=== PATIENT | female | born 1970 | race Caucasian/White ===

== ENCOUNTER 2017-01-14 11:49 | Inpatient (IN) | payer MEDICAID ==
[2017-01-14 16:59] LABS: BASOPHILS % (AUTO) 0.4 % (0.2-1.0); EOSINOPHILS # (AUTO) 0.1 x10^3/uL (0.0-0.2); EOSINOPHILS % (AUTO) 1.2 % (0.9-2.9); HEMATOCRIT 41.7 % (36.0-47.0); HEMOGLOBIN 14.4 g/dL (12.0-16.0); LYMPHOCYTES # (AUTO) 2.8 X10^3/uL (1.3-2.9); LYMPHOCYTES % (AUTO) 27.7 % (21.0-51.0); MEAN CORPUSCULAR HEMOGLOBIN 31.8 pg (27.0-34.0); MEAN CORPUSCULAR HGB CONC 34.6 g/dL (33.0-35.0); MEAN PLATELET VOLUME 7.6 fL (7.4-11.0); MONOCYTES # (AUTO) 0.8 x10^3/uL (0.3-0.8); MONOCYTES % (AUTO) 7.7 % (0.0-13.0); NEUTROPHILS # (AUTO) 6.4 x10^3/uL (2.2-4.8); PLATELET COUNT 243 X10^3/uL (150.0-450.0); RED BLOOD COUNT 4.54 X10^6/uL (3.5-5.4); RED CELL DISTRIBUTION WIDTH 14.1 % (11.6-16.5); WHITE BLOOD COUNT 10.2 X10^3/uL (3.6-10.0)
[2017-01-14 17:07] LABS: BLOOD UREA NITROGEN 12 mg/dL (7-18); CALCIUM 9.2 mg/dL (8.5-10.1); CARBON DIOXIDE 27.3 mmol/L (21-32); CHLORIDE 109 mmol/L (98-107); CREATININE 0.82 mg/dL (0.55-1.02); GLUCOSE 87 mg/dL (65-99); SODIUM 143 mmol/L (136-145); eGFR BLACK RACES > 60 (>60); eGFR NON BLACK RACES > 60 (>60)
--- NOTE | 2017-01-14 17:25 | RAD ---
History: Cough and wheezing Study: PA and lateral chest Comparison: None Findings: The lungs are well inflated and grossly clear. The heart is mildly enlarged. There is no p leural effusion. The aorta is unremarkable. No bony abnormality is demonstrated. Impression: Mild cardiomegaly, no definite acute disease. Reported By:
[2017-01-14 17:28] LABS: ABG ALLEN TEST POS; ABG BASE EXCESS 3.1 mmol/L (-2.0-2.0)
[2017-01-14] MEDS: DUONEB 0.5 MG/3 MG NEB SCH ×3 (17:47→20:45)
[2017-01-14 17:59] VITALS: BMI 33.5
[2017-01-14] MEDS ORDERED: NS 250 ML IV 250 ML IV ONE (18:42)
[2017-01-14] MEDS ORDERED: NORCO 5/325 MG TAB PO PRN (18:49)
[2017-01-14] MEDS: ROCEPHIN VIAL 1 GM 1 GM in NS 50 ML IV + SPIKE MINIBAG* 50 ML IV SCH (18:50)
[2017-01-14] MEDS: ZOFRAN INJ 4 MG VIAL IVP PRN (22:49)
[2017-01-14] MEDS: MORPHINE SULFATE INJ 2 MG IVP PRN (22:50)
[2017-01-14] MEDS: ZITHROMAX INJ 500 MG VIAL 500 MG in NS 250 ML IV 250 ML IV SCH (22:55)
[2017-01-15] MEDS: DUONEB 0.5 MG/3 MG NEB SCH ×6 (01:03→21:06)
[2017-01-15] MEDS: MORPHINE SULFATE INJ 2 MG IVP PRN ×2 (04:12→17:01)
[2017-01-15] MEDS: ZOFRAN INJ 4 MG VIAL IVP PRN ×3 (04:15→22:23)
[2017-01-15] MEDS ORDERED: ROBITUSSIN DM PO PRN (08:20)
[2017-01-15] MEDS ORDERED: TYLENOL #3 TAB (W/CODEINE) PO PRN (09:10)
[2017-01-15] MEDS ORDERED: ONDANSETRON HCL 8 MG PO PRN (09:10)
[2017-01-15] MEDS ORDERED: LOMOTIL PO PRN (09:10)
[2017-01-15] MEDS ORDERED: CYCLOBENZAPRINE HCL 5 MG PO PRN (09:10)
[2017-01-15] MEDS ORDERED: PATIENT'S HOME MEDICATION (Budesonide-Formoterol 2 PUFF) PO SCH (09:15)
[2017-01-15] MEDS ORDERED: POTASSIUM CHLORIDE 20 MEQ PO SCH (09:15)
--- NOTE | 2017-01-15 09:15 | DR.H&P ---
H&P - History & Physical for Day of: H&P Date: 01/14/17 - Chief Complaint Chief Complaint: SOB - Allergies Allergies/Adverse Reactions: Allergies Allergy/AdvReac Type Severity Reaction Status Date / Time No Known Drug Allergy Allergy Verified 01/14/17 17:59 - History of Present Illness History of Present Illness: The patient is a 46-year-old white female who presented to the first care clinic with complaints of increasing shortness of breath. Has dyspnea on exertion. Does have a history of COPD. Has audible wheezing. Patient has been on Levaquin since last week as well as continuing nebulizer treatments. States she has not had a treatment this morning. Albuterol Atrovent neb treatment was given in the office. O2 saturation was 98- 99% on room air. Patient denies having productive cough. Patient denies fever. Does complain of fatigue. Does state that she has difficulty walking across the room. Patient will be admitted for further evaluation and management. - Past Medical History Past Medical History: Asthma, COPD, Diabetes, Hypertension - Past Surgical History Surgical History: Hysterectomy - Family History Family Medical History: Cancer, Hypertension - Social History Does patient currently use any type of tobacco product: No Have you used tobacco products in the last 12 months: No Type of Tobacco Use: None Does any household member use tobacco: No Alcohol Use: None Drug Use: None - Medications Home Medications: Acetaminophen/Codeine Tab [TYLENOL w/CODEINE #3 (300 MG/30 MG) *] 1 tab PO Q8H PRN 01/14/17 [History Confirmed 01/14/17] Albuterol Sulfate [Proair Hfa] 2 puff INH QID PRN 01/14/17 [History Confirmed ] Aspirin EC [ASPIRIN EC 81 MG *] 81 mg PO DAILY 01/14/17 [History Confirmed 01/14] Atorvastatin Calcium [LIPITOR Tab 10 mg *] 10 mg PO HS 01/14/17 [History Confirmed 01/14/17] Budesonide-Formoterol [SYMBICORT INH 80/4.5 mcg (10.2 g) *] 2 puff PO BID [History Confirmed 01/14/17] Cyclobenzaprine HCl [Flexeril] 5 mg PO TID PRN 01/14/17 [History Confirmed 01/14] Diphenoxylate W/ Atropine [Diphenoxylate/Atropine 2.5-0.025 mg] 1 tab PO QID PRN 01/14/17 [History Confirmed 01/14/17] Estrogens, Conjugated [Premarin] 0.625 mg PO DAILY 01/14/17 [History Confirmed 01/14/17] Fluticasone-Salmeterol [Advair Diskus 250-50 Mcg/Dose 14-dose] 1 puff IN DAILY 01/14/17 [History Confirmed 01/14/17] Hydrocodone-Acet 5 mg/325 mg [[place] 5/325 mg Tab] 1 tab PO Q4H PRN 01/14/17 [ History Confirmed 01/14/17] Ipratropium/Albuterol Nebule [DUONEB 0.5 MG/3 MG NEBULE *] 1 nebule NEB QID 07/21 [History Confirmed 01/14/17] Lisinopril 5 mg PO DAILY 01/14/17 [History Confirmed 01/14/17] Ondansetron HCl [Zofran] 8 mg PO Q6H PRN 01/14/17 [History Confirmed 01/14/17] Potassium Chloride [K-Tab] 20 meq PO DAILY 01/14/17 [History Confirmed 01/14/17] Promethazine HCl [PHENERGAN TAB 25 MG *] 25 mg PO Q8H PRN 01/14/17 [History Confirmed 01/14/17] - Review of Systems Constitutional: Weakness, Malaise Eyes: No Symptoms Reported ENT: No Symptoms Reported Respiratory: Cough, Shortness of Breath, SOB with Excertion, Wheezing Cardiovascular: No Symptoms Reported Gastrointestinal: No Symptoms Reported Genitourinary: No Symptoms Reported Musculoskeletal: No Symptoms Reported Skin: No Symptoms Reported Neurological: No Symptoms Reported - Physical Exam Vital Signs: Temperature 97.5 F Pulse Rate [Right Brachial] 83 Pulse Rate [Left Brachial] 118 Pulse Rate 98 Respiratory Rate 20 Blood Pressure [Right Arm] 111/80 O2 Sat by Pulse Oximetry 94 Oriented: Normal Eyes: Normal Ear: Normal Nose: Normal Throat: Normal Respiratory: Diminished Throughout, Wheezes Throughout Cardiovascular: Normal : Normal Auscultation: Bowel Sounds: Normal Palpation: Normal Tenderness: Normal Skin: Normal Musculoskeletal: Normal Psychiatric: Normal Mood Description: Calm Affect: Normal Speech Pattern: Clear - Assessment/Plan (1) Acute exacerbation of COPD with asthma Status: Acute Plan: IV Rocephin, Zithromax and Solu-moderol. CXR. Nebulizer treatments. (2) Acute bronchitis Qualifiers: Bronchitis organism: B Status: Acute Plan: Rocephin and Zithromax. Nebulizer treatments. Chest x-ray. (3) Diabetes Qualifiers: Diabetes mellitus type: type 2 Diabetes mellitus complication status: D Diabetes mellitus complication detail: D Diabetic retinopathy severity: D Proliferative retinopathy type: P Diabetes mellitus macular edema: D Diabetes mellitus exterminator termite insulin use: D Laterality: L Chronic kidney disease stage: C Status: Acute Plan: blood sugar checks. Sliding scale coverage.
[2017-01-15] MEDS: ROCEPHIN VIAL 1 GM 1 GM in NS 50 ML IV + SPIKE MINIBAG* 50 ML IV SCH (09:19)
[2017-01-15] MEDS: ROBITUSSIN DM PO SCH ×4 (09:21→21:33)
[2017-01-15] MEDS ORDERED: ZOFRAN TAB 4 MG PO PRN (09:25)
[2017-01-15] MEDS: ASPIRIN EC 81 MG PO SCH (10:07)
[2017-01-15] MEDS: SOLU-Medrol 40 MG VIAL IVP SCH ×2 (10:07→16:54)
[2017-01-15] MEDS: ZITHROMAX INJ 500 MG VIAL 500 MG in NS 250 ML IV 250 ML IV SCH (10:08)
[2017-01-15] MEDS: K-DUR TAB 20 MEQ PO SCH (10:08)
[2017-01-15] MEDS: FLEXERIL TAB 10 MG PO PRN (12:13)
[2017-01-15] MEDS: PULMICORT NEB TX 0.5 MG NEB SCH ×2 (16:38→21:06)
--- NOTE | 2017-01-15 17:31 | PCM.PROG ---
Progress Note - Progress Note for Day of Date: 01/15/17 - Subjective Subjective: COUGHING BAD, MAKES HER CHOKE. 46WF ADMITTED FOR COPD EXACERBATION ONE DAY AGO. PLAN TO CONTINUE IV ATBX AND RESP THERAPY - Past Medical Family Social History Past Med/Fam/Surg Hx: No changes since H&P Allergies: Allergies No Known Drug Allergy Allergy (Verified 01/14/17 17:59) - Review of Systems ROS: No change since H&P - Vital Signs and I&O's Vital Signs: Temperature 97.6 F Pulse Rate [Right Brachial] 93 Pulse Rate [Left Brachial] 106 Pulse Rate 105 Respiratory Rate 20 Blood Pressure [Left Arm] 151/65 Blood Pressure [Right Arm] 128/89 O2 Sat by Pulse Oximetry 96 Intake and Output: Intake & Output 01/13/17 01/14/17 01/15/17 01/16/17 11:59 11:59 11:59 11:59 Intake Total 1230 1620 Balance 1230 1620 - Physical Exam Oriented: Normal Eyes: Normal Ear: Normal Nose: Normal Throat: Normal Respiratory: Wheezes, Rhonchi Cardiovascular: Normal : Normal Auscultation: Bowel Sounds: Normal Tenderness: Normal Skin: Normal Musculoskeletal: Normal Psychiatric: Normal Mood Description: Calm Affect: Normal Speech Pattern: Clear - Laboratory and Diagnostics Result Diagrams: 01/14/17 16:45 01/14/17 16:45 Labs: 01/14/17 16:52 Urine,Clean Catch Urine Culture - Final Laboratory WBC 10.2 X10^3/uL (3.6-10.0) H 01/14/17 16:45 RBC 4.54 X10^6/uL (3.5-5.4) 01/14/17 16:45 Hgb 14.4 g/dL (12.0-16.0) 01/14/17 16:45 Hct 41.7 % (36.0-47.0) 01/14/17 16:45 MCV 92.0 fL (80.0-100.0) 01/14/17 16:45 MCH 31.8 pg (27.0-34.0) 01/14/17 16:45 MCHC 34.6 g/dL (33.0-35.0) 01/14/17 16:45 RDW 14.1 % (11.6-16.5) 01/14/17 16:45 Plt Count 243 X10^3/uL (150.0-450.0) 01/14/17 16:45 MPV 7.6 fL (7.4-11.0) 01/14/17 16:45 Neut % 63.0 % (42.0-75.0) 01/14/17 16:45 Lymph % 27.7 % (21.0-51.0) 01/14/17 16:45 [place] % 7.7 % (0.0-13.0) 01/14/17 16:45 Eos % 1.2 % (0.9-2.9) 01/14/17 16:45 Baso % 0.4 % (0.2-1.0) 01/14/17 16:45 Neut # 6.4 x10^3/uL (2.2-4.8) H 01/14/17 16:45 Lymph # 2.8 X10^3/uL (1.3-2.9) 01/14/17 16:45 [place] # 0.8 x10^3/uL (0.3-0.8) 01/14/17 16:45 Eos # 0.1 x10^3/uL (0.0-0.2) 01/14/17 16:45 Baso # 0.0 X10^3/uL (0.0-0.1) 01/14/17 16:45 Absolute Nucleated RBC 0.0 /100WBC 01/14/17 16:45 Sample Site Rr 01/14/17 17:23 ABG pH 7.460 (7.35-7.45) H 01/14/17 17:23 ABG pCO2 38.0 mmHg (35.0-45.0) 01/14/17 17:23 ABG pO2 80.0 mmHg (80.0-100.0) 01/14/17 17:23 ABG HCO3 27.0 mmol/L (22-26) H 01/14/17 17:23 ABG O2 Saturation 96.0 % (90-100) 01/14/17 17:23 ABG Base Excess 3.1 mmol/L (-2.0-2.0) H 01/14/17 17:23 Garry Test Pos 06/12/17 17:23 A-a Gradient 22.0 mmHg 01/14/17 17:23 FiO2 21.000 01/14/17 17:23 Blood Gas Comments Pt marleni well. cdn 01/14/17 17:23 Sodium 143 mmol/L (136-145) 01/14/17 16:45 Corrected Sodium TNP 01/14/17 16:45 Potassium 3.6 mmol/L (3.5-5.1) 01/14/17 16:45 Chloride 109 mmol/L (98-107) H 01/14/17 16:45 Carbon Dioxide 27.3 mmol/L (21-32) 01/14/17 16:45 BUN 12 mg/dL (7-18) 01/14/17 16:45 Creatinine 0.82 mg/dL (0.55-1.02) 01/14/17 16:45 Est GFR (MDRD) Af Amer > 60 (>60) 01/14/17 16:45 Est GFR (MDRD) Non-Af > 60 (>60) 01/14/17 16:45 Glucose 87 mg/dL (65-99) 01/14/17 16:45 Calcium 9.2 mg/dL (8.5-10.1) 01/14/17 16:45 - Plan (1) Acute bronchitis Status: Acute Qualifiers: Bronchitis organism: B Plan: Rocephin and Zithromax. Nebulizer treatments. Chest x-ray. (2) Acute exacerbation of COPD with asthma Status: Acute Plan: IV Rocephin, Zithromax and Solu-moderol. CXR. Nebulizer treatments. (3) Diabetes Status: Acute Qualifiers: Diabetes mellitus type: type 2 Diabetes mellitus complication status: D Diabetes mellitus complication detail: D Diabetic retinopathy severity: D Proliferative retinopathy type: P Diabetes mellitus macular edema: D Diabetes mellitus custodial insulin use: D Laterality: L Chronic kidney disease stage: C Plan: blood sugar checks. Sliding scale coverage.
[2017-01-15] MEDS: LIPITOR TAB 10 MG PO SCH (21:33)
[2017-01-16] MEDS: SOLU-Medrol 40 MG VIAL IVP SCH ×2 (00:27→08:59)
[2017-01-16] MEDS: DUONEB 0.5 MG/3 MG NEB SCH ×6 (01:19→20:49)
[2017-01-16] MEDS: MORPHINE SULFATE INJ 2 MG IVP PRN ×4 (03:59→21:08)
[2017-01-16] MEDS: ZOFRAN INJ 4 MG VIAL IVP PRN ×2 (04:01→16:16)
--- NOTE | 2017-01-16 06:04 | RAD ---
HISTORY: Cough, wheezing Study: Chest one view Comparison: January 14, 2017 Findings: The trachea is midline. The cardiac silhouette is enlarged. No congestive heart failure is noted.. The lungs are clear without focal infiltrate or effusion. The bony thorax is unremarkable. IMPRESSION: 1. Mild cardiomegaly without congestive heart failure 2. Lungs clear Reported By:
[2017-01-16 06:44] LABS: ALANINE AMINOTRANSFERASE 19 Units/L (12-78); ALKALINE PHOSPHATASE 98 Units/L (46-116); ASPARTATE AMINO TRANSFERASE 9 Units/L (15-37); BLOOD UREA NITROGEN 14 mg/dL (7-18); CALCIUM 9.3 mg/dL (8.5-10.1); CARBON DIOXIDE 26.2 mmol/L (21-32); CHLORIDE 109 mmol/L (98-107); COR CA(FOR HYPOALB) 10.1 mg/dL (8.5-10.1); COR NA(FOR HYPERGLY) 143 mmol/L (136-145); CREATININE 0.67 mg/dL (0.55-1.02); GLUCOSE 158 mg/dL (65-99); SODIUM 142 mmol/L (136-145); TOTAL PROTEIN 6.4 g/dL (6.4-8.2); eGFR BLACK RACES > 60 (>60); eGFR NON BLACK RACES > 60 (>60)
[2017-01-16 06:56] LABS: BASOPHILS % (AUTO) 0.1 % (0.2-1.0); HEMATOCRIT 39.1 % (36.0-47.0); HEMOGLOBIN 13.3 g/dL (12.0-16.0); LYMPHOCYTES # (AUTO) 0.8 X10^3/uL (1.3-2.9); LYMPHOCYTES % (AUTO) 5.5 % (21.0-51.0); MEAN CORPUSCULAR HEMOGLOBIN 31.6 pg (27.0-34.0); MEAN CORPUSCULAR HGB CONC 33.9 g/dL (33.0-35.0); MEAN PLATELET VOLUME 7.7 fL (7.4-11.0); MONOCYTES # (AUTO) 0.2 x10^3/uL (0.3-0.8); MONOCYTES % (AUTO) 1.4 % (0.0-13.0); NEUTROPHILS # (AUTO) 13.8 x10^3/uL (2.2-4.8); PLATELET COUNT 236 X10^3/uL (150.0-450.0); RED CELL DISTRIBUTION WIDTH 13.8 % (11.6-16.5); WHITE BLOOD COUNT 14.9 X10^3/uL (3.6-10.0)
[2017-01-16 07:35] LABS: BAND NEUTROPHILS % 3 % (0-10)
[2017-01-16 07:36] LABS: PLATELET MORPHOLOGY COMMENT NORMAL (NORMAL)
[2017-01-16] MEDS: ROCEPHIN VIAL 1 GM 1 GM in NS 50 ML IV + SPIKE MINIBAG* 50 ML IV SCH (08:58)
[2017-01-16] MEDS: PREMARIN PO SCH (09:00)
[2017-01-16] MEDS: ZESTRIL TAB 5 MG PO SCH (09:00)
[2017-01-16] MEDS: ASPIRIN EC 81 MG PO SCH (09:00)
[2017-01-16] MEDS: K-DUR TAB 20 MEQ PO SCH (09:00)
[2017-01-16] MEDS: ROBITUSSIN DM PO SCH ×4 (09:00→21:07)
[2017-01-16] MEDS: PULMICORT NEB TX 0.5 MG NEB SCH ×2 (09:15→20:49)
[2017-01-16] MEDS: ZITHROMAX INJ 500 MG VIAL 500 MG in NS 250 ML IV 250 ML IV SCH (09:59)
[2017-01-16] MEDS ORDERED: TORADOL 60 MG VIAL IM ONE (10:58)
[2017-01-16] MEDS: LIPITOR TAB 10 MG PO SCH (21:07)
[2017-01-16] MEDS: TUSSIONEX PENNKINETIC SUSP PO PRN (21:09)
[2017-01-16] MEDS: PHENERGAN TAB 25 MG PO PRN (21:42)
[2017-01-17] MEDS: DUONEB 0.5 MG/3 MG NEB SCH ×6 (01:07→20:45)
[2017-01-17] MEDS: MORPHINE SULFATE INJ 2 MG IVP PRN ×2 (02:32→07:25)
[2017-01-17 06:31] LABS: ALANINE AMINOTRANSFERASE 15 Units/L (12-78); ALBUMIN 2.9 g/dL (3.4-5.0); ALKALINE PHOSPHATASE 87 Units/L (46-116); ASPARTATE AMINO TRANSFERASE 9 Units/L (15-37); BLOOD UREA NITROGEN 16 mg/dL (7-18); CALCIUM 9.2 mg/dL (8.5-10.1); CARBON DIOXIDE 27.7 mmol/L (21-32); CHLORIDE 108 mmol/L (98-107); COR CA(FOR HYPOALB) 10.1 mg/dL (8.5-10.1); COR NA(FOR HYPERGLY) 146 mmol/L (136-145); CREATININE 0.63 mg/dL (0.55-1.02); GLUCOSE 126 mg/dL (65-99); SODIUM 145 mmol/L (136-145); TOTAL PROTEIN 5.9 g/dL (6.4-8.2); eGFR BLACK RACES > 60 (>60); eGFR NON BLACK RACES > 60 (>60)
[2017-01-17 06:35] LABS: BASOPHILS % (AUTO) 0.2 % (0.2-1.0); HEMOGLOBIN 12.7 g/dL (12.0-16.0); LYMPHOCYTES # (AUTO) 1.8 X10^3/uL (1.3-2.9); LYMPHOCYTES % (AUTO) 9.1 % (21.0-51.0); MEAN CORPUSCULAR HEMOGLOBIN 31.5 pg (27.0-34.0); MEAN CORPUSCULAR HGB CONC 33.5 g/dL (33.0-35.0); MEAN CORPUSCULAR VOLUME 93.8 fL (80.0-100.0); MEAN PLATELET VOLUME 7.8 fL (7.4-11.0); MONOCYTES # (AUTO) 1.1 x10^3/uL (0.3-0.8); MONOCYTES % (AUTO) 5.2 % (0.0-13.0); NEUTROPHILS # (AUTO) 17.3 x10^3/uL (2.2-4.8); NEUTROPHILS % (AUTO) 85.5 % (42.0-75.0); PLATELET COUNT 243 X10^3/uL (150.0-450.0); RED BLOOD COUNT 4.05 X10^6/uL (3.5-5.4); RED CELL DISTRIBUTION WIDTH 14.1 % (11.6-16.5)
[2017-01-17 06:37] LABS: WHITE BLOOD COUNT 20.2 X10^3/uL (3.6-10.0)
[2017-01-17] MEDS: PHENERGAN TAB 25 MG PO PRN (07:25)
[2017-01-17] MEDS: PULMICORT NEB TX 0.5 MG NEB SCH ×2 (08:47→20:45)
[2017-01-17] MEDS: ASPIRIN EC 81 MG PO SCH (09:16)
[2017-01-17] MEDS: K-DUR TAB 20 MEQ PO SCH (09:16)
[2017-01-17] MEDS: ROCEPHIN VIAL 1 GM 1 GM in NS 50 ML IV + SPIKE MINIBAG* 50 ML IV SCH (09:16)
[2017-01-17] MEDS: ZITHROMAX INJ 500 MG VIAL 500 MG in NS 250 ML IV 250 ML IV SCH (09:16)
[2017-01-17] MEDS: PREMARIN PO SCH (09:17)
[2017-01-17] MEDS: ZESTRIL TAB 5 MG PO SCH (09:17)
[2017-01-17] MEDS: ROBITUSSIN DM PO SCH ×4 (09:17→22:27)
[2017-01-17] MEDS: TUSSIONEX PENNKINETIC SUSP PO PRN (09:19)
[2017-01-17] MEDS ORDERED: NS 500 ML IV 500 ML IV ONE (09:22)
[2017-01-17] MEDS: NS 500 ML IV 500 ML IV SCH (10:05)
[2017-01-17] MEDS: NORCO 5/325 MG TAB PO PRN ×2 (14:17→22:28)
[2017-01-17] MEDS ORDERED: COLACE CAP 100 MG PO PRN (14:20)
[2017-01-17] MEDS ORDERED: MILK OF MAGNESIA PO PRN (14:20)
[2017-01-17] MEDS: BROVANA IN SCH (20:45)
[2017-01-17] MEDS: LIPITOR TAB 10 MG PO SCH (22:27)
[2017-01-17] MEDS: FLEXERIL TAB 10 MG PO PRN (22:27)
[2017-01-18] MEDS: DUONEB 0.5 MG/3 MG NEB SCH ×5 (00:43→16:32)
[2017-01-18] MEDS: NORCO 5/325 MG TAB PO PRN ×3 (03:45→14:04)
[2017-01-18 05:09] LABS: BASOPHILS % (AUTO) 0.2 % (0.2-1.0); EOSINOPHILS % (AUTO) 0.2 % (0.9-2.9); HEMATOCRIT 37.2 % (36.0-47.0); HEMOGLOBIN 12.6 g/dL (12.0-16.0); LYMPHOCYTES # (AUTO) 3.3 X10^3/uL (1.3-2.9); LYMPHOCYTES % (AUTO) 31.1 % (21.0-51.0); MEAN CORPUSCULAR HEMOGLOBIN 31.6 pg (27.0-34.0); MEAN CORPUSCULAR HGB CONC 33.8 g/dL (33.0-35.0); MEAN CORPUSCULAR VOLUME 93.6 fL (80.0-100.0); MEAN PLATELET VOLUME 7.7 fL (7.4-11.0); MONOCYTES # (AUTO) 0.8 x10^3/uL (0.3-0.8); MONOCYTES % (AUTO) 7.4 % (0.0-13.0); NEUTROPHILS # (AUTO) 6.5 x10^3/uL (2.2-4.8); NEUTROPHILS % (AUTO) 61.1 % (42.0-75.0); PLATELET COUNT 218 X10^3/uL (150.0-450.0); RED BLOOD COUNT 3.98 X10^6/uL (3.5-5.4); RED CELL DISTRIBUTION WIDTH 14.1 % (11.6-16.5); WHITE BLOOD COUNT 10.6 X10^3/uL (3.6-10.0)
[2017-01-18 05:20] LABS: ALANINE AMINOTRANSFERASE 29 Units/L (12-78); ALBUMIN 2.9 g/dL (3.4-5.0); ALKALINE PHOSPHATASE 90 Units/L (46-116); ASPARTATE AMINO TRANSFERASE 20 Units/L (15-37); BLOOD UREA NITROGEN 18 mg/dL (7-18); CALCIUM 8.9 mg/dL (8.5-10.1); CARBON DIOXIDE 32.2 mmol/L (21-32); CHLORIDE 106 mmol/L (98-107); COR CA(FOR HYPOALB) 9.8 mg/dL (8.5-10.1); CREATININE 0.76 mg/dL (0.55-1.02); GLUCOSE 97 mg/dL (65-99); SODIUM 144 mmol/L (136-145); TOTAL PROTEIN 5.7 g/dL (6.4-8.2); eGFR BLACK RACES > 60 (>60); eGFR NON BLACK RACES > 60 (>60)
--- NOTE | 2017-01-18 06:31 | RAD ---
HISTORY: Asthma, shortness of breath Study: Chest two views Comparison: January 16, 2017 Findings: The heart is minimally enlarged. No congestive heart failure is noted. No acute alveolar infiltrates or pleural effusions are identified. The bony thorax is unremarkable. IMPRESSION: Minimal cardiomegaly without congestive heart failure Lungs clear Reported By:
[2017-01-18] MEDS: BROVANA IN SCH (08:28)
[2017-01-18] MEDS: PULMICORT NEB TX 0.5 MG NEB SCH (08:28)
[2017-01-18] MEDS: PREMARIN PO SCH (09:39)
[2017-01-18] MEDS: ASPIRIN EC 81 MG PO SCH (09:39)
[2017-01-18] MEDS: ROBITUSSIN DM PO SCH ×3 (09:39→16:51)
[2017-01-18] MEDS: K-DUR TAB 20 MEQ PO SCH (09:39)
[2017-01-18] MEDS: ROCEPHIN VIAL 1 GM 1 GM in NS 50 ML IV + SPIKE MINIBAG* 50 ML IV SCH (09:39)
[2017-01-18] MEDS: NS 500 ML IV 500 ML IV SCH (09:39)
[2017-01-18] MEDS: ZITHROMAX INJ 500 MG VIAL 500 MG in NS 250 ML IV 250 ML IV SCH (09:39)
[2017-01-18] MEDS: ZESTRIL TAB 5 MG PO SCH (09:39)
[2017-01-18] MEDS ORDERED: D5 LR 1000 ML 1,000 ML IV ONE (15:34)
[2017-01-18] MEDS ORDERED: DIPRIVAN VIAL 20 ML ONE (15:57)
[2017-01-18 17:44] VITALS: BP 132/78
[2017-01-18] MEDS: TUSSIONEX PENNKINETIC SUSP PO PRN (18:47)
--- NOTE | 2017-02-04 10:29 | PCM.DCPLAN ---
Discharge Summary - Admission Date Date of Admission: 01/14/17 - Discharge Date Discharge Date: 01/17/17 - Admission Diagnoses (1) Dysphagia Status: Acute (2) Acute bronchitis Status: Acute (3) Acute exacerbation of COPD with asthma Status: Acute (4) Diabetes Status: Acute - Discharge Diagnoses Discharge Diagnosis: SAME ADMISSION DIAGNOSIS - Discharge Medications Discharge Medications: Acetaminophen/Codeine Tab [TYLENOL w/CODEINE #3 (300 MG/30 MG) *] 1 tab PO Q8H PRN 01/14/17 [History] Albuterol Sulfate [Proair Hfa] 2 puff INH QID PRN 01/14/17 [History] Aspirin EC [ASPIRIN EC 81 MG *] 81 mg PO DAILY 01/14/17 [History] Atorvastatin Calcium [LIPITOR Tab 10 mg *] 10 mg PO HS 01/14/17 [History] Budesonide-Formoterol [SYMBICORT INH 80/4.5 mcg (10.2 g) *] 2 puff PO BID [History] Cyclobenzaprine HCl [Flexeril] 5 mg PO TID PRN 01/14/17 [History] Diphenoxylate HCl/Atropine [Diphenoxylate-Atrop 2.5-0.025] 1 tab PO QID PRN 07/21 [History] Estrogens, Conjugated [PREMARIN TAB 0.625 MG *] 0.625 mg PO DAILY 01/14/17 [ History] Fluticasone/Salmeterol [Advair Diskus 250-50 Mcg/Dose 14-dose] 1 puff IN DAILY 01/14/17 [History] Hydrocodone-Acet 5 mg/325 mg [[place] 5 MG/325 MG *] 1 tab PO Q4H PRN 01/14/17 [ History] Ipratropium/Albuterol Nebule [DUONEB 0.5 MG/3 MG NEBULE *] 1 nebule NEB QID 07/21 [History] Lisinopril 5 mg PO DAILY 01/14/17 [History] Ondansetron HCl [Zofran] 8 mg PO Q6H PRN 01/14/17 [History] Potassium Chloride [K-Tab ER] 20 meq PO DAILY 01/14/17 [History] Promethazine HCl [PHENERGAN TAB 25 MG *] 25 mg PO Q8H PRN 01/14/17 [History] Levofloxacin [Levaquin Tab 750 mg] 750 mg PO Q24H #7 tab 01/18/17 [Rx] - Hospital Course Vital Signs: Temperature 97.7 F Pulse Rate [Right Brachial] 108 Pulse Rate [Left Brachial] 91 Pulse Rate 87 Respiratory Rate 20 Blood Pressure [Left Arm] 113/61 Blood Pressure [Right Arm] 132/78 O2 Sat by Pulse Oximetry 98 Latest Lab Results: Laboratory Last Values WBC 10.6 X10^3/uL (3.6-10.0) H 01/18/17 03:40 RBC 3.98 X10^6/uL (3.5-5.4) 01/18/17 03:40 Hgb 12.6 g/dL (12.0-16.0) 01/18/17 03:40 Hct 37.2 % (36.0-47.0) 01/18/17 03:40 MCV 93.6 fL (80.0-100.0) 01/18/17 03:40 MCH 31.6 pg (27.0-34.0) 01/18/17 03:40 MCHC 33.8 g/dL (33.0-35.0) 01/18/17 03:40 RDW 14.1 % (11.6-16.5) 01/18/17 03:40 Plt Count 218 X10^3/uL (150.0-450.0) 01/18/17 03:40 Plt Count Comment Adequate (ADEQUATE) 01/16/17 04:45 MPV 7.7 fL (7.4-11.0) 01/18/17 03:40 Neut % 61.1 % (42.0-75.0) 01/18/17 03:40 Lymph % 31.1 % (21.0-51.0) 01/18/17 03:40 Walker % 7.4 % (0.0-13.0) 01/18/17 03:40 Eos % 0.2 % (0.9-2.9) L 01/18/17 03:40 Baso % 0.2 % (0.2-1.0) 01/18/17 03:40 Neut # 6.5 x10^3/uL (2.2-4.8) H 01/18/17 03:40 Lymph # 3.3 X10^3/uL (1.3-2.9) H 01/18/17 03:40 Walker # 0.8 x10^3/uL (0.3-0.8) 01/18/17 03:40 Eos # 0.0 x10^3/uL (0.0-0.2) 01/18/17 03:40 Baso # 0.0 X10^3/uL (0.0-0.1) 01/18/17 03:40 Absolute Nucleated RBC 0.0 /100WBC 01/18/17 03:40 Total Counted 100 01/16/17 04:45 Neutrophils % (Manual) 90 % (39-76) H 01/16/17 04:45 Band Neutrophils % 3 % (0-10) 01/16/17 04:45 Lymphocytes % (Manual) 6 % (13-43) L 01/16/17 04:45 Monocytes % (Manual) 1 % (4-9) L 01/16/17 04:45 Plt Morphology Comment Normal (NORMAL) 01/16/17 04:45 RBC Morphology Normal (NORMAL) 01/16/17 04:45 Sample Site Rr 01/14/17 17:23 ABG pH 7.460 (7.35-7.45) H 01/14/17 17:23 ABG pCO2 38.0 mmHg (35.0-45.0) 01/14/17 17:23 ABG pO2 80.0 mmHg (80.0-100.0) 01/14/17 17: ABG HCO3 27.0 mmol/L (22-26) H 01/14/17 17:23 ABG O2 Saturation 96.0 % (90-100) 01/14/17 17:23 ABG Base Excess 3.1 mmol/L (-2.0-2.0) H 01/14/17 17:23 Garry Test Pos 01/14/17 17:23 A-a Gradient 22.0 mmHg 01/14/17 17:23 FiO2 21.000 01/14/17 17:23 Blood Gas Comments Pt marleni well. cdn 01/14/17 17:23 Sodium 144 mmol/L (136-145) 01/18/17 03:40 Corrected Sodium TNP 01/18/17 03:40 Potassium 4.5 mmol/L (3.5-5.1) 01/18/17 03:40 Chloride 106 mmol/L (98-107) 01/18/17 03:40 Carbon Dioxide 32.2 mmol/L (21-32) H 01/18/17 03:40 BUN 18 mg/dL (7-18) 01/18/17 03:40 Creatinine 0.76 mg/dL (0.55-1.02) 01/18/17 03:40 Est GFR (MDRD) Af Amer > 60 (>60) 01/18/17 03:40 Est GFR (MDRD) Non-Af > 60 (>60) 01/18/17 03:40 Glucose 97 mg/dL (65-99) 01/18/17 03:40 Calcium 8.9 mg/dL (8.5-10.1) 01/18/17 03:40 Corrected Calcium 9.8 mg/dL (8.5-10.1) 01/18/17 03:40 Total Bilirubin 0.20 mg/dL (0.2-1.0) 01/18/17 03:40 AST 20 Units/L (15-37) 01/18/17 03:40 ALT 29 Units/L (12-78) 01/18/17 03:40 Alkaline Phosphatase 90 Units/L (46-116) 01/18/17 03:40 Total Protein 5.7 g/dL (6.4-8.2) L 01/18/17 03:40 Albumin 2.9 g/dL (3.4-5.0) L 01/18/17 03:40 Globulin 2.8 g/dL (2.5-4.5) 01/18/17 03:40 Albumin/Globulin Ratio 1.0 Ratio (1.1-2.1) L 01/18/17 03:40 Tissue Pathology To follow 01/18/17 16:13 Hospital Course: The patient is a 46-year-old white female who presented to the first care clinic with complaints of increasing shortness of breath. Has dyspnea on exertion. Does have a history of COPD. Has audible wheezing. Patient has been on Levaquin since last week as well as continuing nebulizer treatments. States she has not had a treatment this morning. Albuterol Atrovent neb treatment was given in the office. O2 saturation was 98-99% on room air. Patient denies having productive cough. Patient denies fever. Does complain of fatigue. Does state that she has difficulty walking across the room. Patient was admitted for further evaluation and management. The patient did receive IV steroids, antibiotics and nebulizer treatments. Patient did have improvement in dyspnea. Subsequently patient underwent an EGD. Patient's symptoms again improved the patient was discharged home and followed up in outpatient setting. - Discharge Plan Disposition: 01 HOME, SELF-CARE Condition: Stable Prescriptions: Levofloxacin [Levaquin Tab 750 mg] 750 mg PO Q24H #7 tab - Follow ups/Referrals Follow ups/Referrals: JEREMY LINDER [Primary Care Provider] - - Instructions Additional Instructions: PATIENT HAD EGD THIS PM.
== END 2017-01-18 18:50 | disposition home or self-care (01) | DRG 202 ==
LOC: MED/SURG 11:49 → UNDOADMIN 11:49 → MED/SURG 15:15
PROVIDERS: ADMIT Internal Medicine; ATTEND Internal Medicine
PROC: 0DB68ZX Excision of Stomach, Via Natural or Artificial Opening Endoscopic, Diagnostic (ICD-10-PCS; principal; 2017-01-18 18:00)
DX: J20.8 Acute bronchitis due to other specified organisms (principal); J44.1 Chronic obstructive pulmonary disease with (acute) exacerbation; J44.0 Chronic obstructive pulmonary disease with (acute) lower respiratory infection; R06.02 Shortness of breath; R06.09 Other forms of dyspnea; R53.83 Other fatigue; E11.9 Type 2 diabetes mellitus without complications; I10 Essential (primary) hypertension; R11.2 Nausea with vomiting, unspecified; R10.13 Epigastric pain; K20.8 Other esophagitis; K44.9 Diaphragmatic hernia without obstruction or gangrene; K29.60 Other gastritis without bleeding
CPT/HCPCS: 36415; 36600; 71010; 71020; 80048; 80053; 82803; 85025; 87040; 87086; 93005; 93010; 94640; 94760; A4216; A4222; Q0169; A4217; J0456; J0696; J2270; J2405; J2920; J3490; J7120; J7620; J7626

== ENCOUNTER 2017-12-09 16:02 | Observation (INO) | payer MEDICAID ==
[2017-12-09 16:06] VITALS: BMI 36.3
[2017-12-09] MEDS ORDERED: MORPHINE SULFATE INJ 4 MG ONE (16:27)
[2017-12-09] MEDS ORDERED: MORPHINE SULFATE INJ 4 MG IVP ONE (16:30)
[2017-12-09 16:34] LABS: BASOPHILS # (AUTO) 0.1 X10^3/uL (0.0-0.1); EOSINOPHILS # (AUTO) 0.2 x10^3/uL (0.0-0.2); HEMOGLOBIN 14.2 g/dL (12.0-16.0); LYMPHOCYTES # (AUTO) 2.4 X10^3/uL (1.3-2.9); LYMPHOCYTES % (AUTO) 30.5 % (21.0-51.0); MEAN CORPUSCULAR HEMOGLOBIN 31.8 pg (27.0-34.0); MEAN CORPUSCULAR HGB CONC 34.7 g/dL (33.0-35.0); MEAN CORPUSCULAR VOLUME 91.4 fL (80.0-100.0); MEAN PLATELET VOLUME 7.6 fL (7.4-11.0); MONOCYTES # (AUTO) 0.7 x10^3/uL (0.3-0.8); MONOCYTES % (AUTO) 8.3 % (0.0-13.0); NEUTROPHILS # (AUTO) 4.5 x10^3/uL (2.2-4.8); NEUTROPHILS % (AUTO) 58.2 % (42.0-75.0); PLATELET COUNT 252 X10^3/uL (150.0-450.0); RED BLOOD COUNT 4.48 X10^6/uL (3.5-5.4); RED CELL DISTRIBUTION WIDTH 13.6 % (11.6-16.5); WHITE BLOOD COUNT 7.8 X10^3/uL (3.6-10.0)
[2017-12-09 17:02] LABS: BLOOD UREA NITROGEN 10 mg/dL (7-18); CALCIUM 8.3 mg/dL (8.5-10.1); CARBON DIOXIDE 28.7 mmol/L (21-32); CHLORIDE 105 mmol/L (98-107); COR NA(FOR HYPERGLY) 144 mmol/L (136-145); CREATININE 0.84 mg/dL (0.55-1.02); SODIUM 143 mmol/L (136-145); TROPONIN I < 0.02 ng/mL (0-1.5); eGFR BLACK RACES > 60 (>60); eGFR NON BLACK RACES > 60 (>60)
[2017-12-09 17:06] LABS: ALANINE AMINOTRANSFERASE 14 Units/L (12-78); ALBUMIN 3.5 g/dL (3.4-5.0); ALKALINE PHOSPHATASE 131 Units/L (46-116); ASPARTATE AMINO TRANSFERASE 11 Units/L (15-37); CREATINE KINASE 99 Units/L (26-192); CREATINE KINASE MB < 1.0 ng/mL (0-4.0); TOTAL PROTEIN 6.9 g/dL (6.4-8.2)
--- NOTE | 2017-12-09 17:32 | RAD ---
Exam: Portable chest History: 47-year-old female with asthma and hypertension Comparison: Previous chest radiograph from 01/18/2017. Findings: Heart size and pulmonary vasculature are normal. Lungs are clear with no infiltrate or significant ef fusion on either side. Bony thorax is unremarkable as well. Impression: No acute cardiopulmonary abnormality is seen on this exam. Reported By:
[2017-12-09] MEDS ORDERED: ZOFRAN INJ 4 MG VIAL IVP ONE (18:38)
--- NOTE | 2017-12-09 19:16 | DR.GENAD ---
HPI - PCP Primary Care Physician: NIYAH - Complaint/Symptoms Chief Complaint Doctors Comments: Patient presents to the ED with complaint of right chest pain with numbness of right upper extremity and right leg. Patient reports that the pain onset 3-4 hours prior to being seen. She reports that she has had a stroke x 2; 3-4 years ago and one year ago. She takes ASA, Zocar and Lisinopril. Chief Complaint:: PT. C/O RIGHT CHEST WALL PAIN THAT RADIATES TO RIGHT ARM. PT. HAS ALSO HAD N/V. PT. STATES "I FEEL LIKE I CAN'T GET MY BREATH & I FEEL LIKE I HAVE A TON OF BRICKS SITTING ON MY CHEST." PT. STATES HER CHEST WALL IS TENDER TO TOUCH. PT. DENIES INJURY. - Source History Provided: Patient - Mode of Arrival Mode of Arrival: Ambulatory - Timing Onset of Chief Complaint: 12/09/17 PMH - PMH Past Medical History: Yes Past Medical History: Asthma, COPD, Diabetes, Hypertension Past Medical History Comment: TIA Past Surgical History: Yes Surgical History: Hysterectomy, Ortho Surgery, Other Past Surgical History Comment: RIGHT FOOT X 2, LEFT FOOT - Family History History of Family Medical Conditions: Yes Family Medical History: Cancer, Hypertension - Social History Does patient currently use any type of tobacco product: No Have you used tobacco products in the last 12 months: No Type of Tobacco Use: None Does any household member use tobacco: No Alcohol Use: None Do you use any recreational Drugs:: No Lives With: Family Lives Where: Home - infectious screening In the last 2 months have you had wt loss of >10#?: NO Have you had fever, night sweats or hemotysis?: No Have you traveled outside the country in the last 6 months?: No Isolation: Standard ROS - Review of Systems Eyes: No Symptoms Reported ENTM: No Symptoms Reported Respiratoy: No Symptoms Reported Cardiovascular: No Symptoms Reported Gastrointestinal/Abdominal: No Symptoms Reported Neurological: No Symptoms Reported Musculoskeletal: No Symptoms Reported Integumentary: No Symptoms Reported Hematologic/Lymphatic: No Symptoms Reported Endocrine: No Symptoms Reported Psychiatric: No Symptoms Reported All Other Systems: Reviewed and Negative PE - Vital Signs Vitals: Temperature 97.1 F Pulse Rate [Apical] 90 Pulse Rate 105 Respiratory Rate 17 Blood Pressure [Left Arm] 116/68 Blood Pressure [Right Arm] 143/77 Blood Pressure 101/67 O2 Sat by Pulse Oximetry 100 - General Limitations: No Limitations General Appearance: Alert - Head Head Exam: Normal Inspection, Atraumatic - Eyes Eye exam: Normal Appearance, PERRL, EOMI - ENT ENT Exam: Normal Exam External Ear Exam: Normal External Inspection TM/Canal Exam: Bilateral Normal Nose Exam: Normal Nose Exam, Sinus Tenderness Mouth Exam: Normal Inspection Throat Exam: Normal Inspection - Neck Neck Exam: Normal Inspection, Full ROM - Chest Chest Inspection: Normal Inspection - Respiratory Respiratory Exam: Normal Lung Sounds Bilat Respiratory Exam: Bilateral Clear to Auscultation - Cardiovascular Cardiovascular Exam: Regular Rate, Normal Rhythm - Abdominal Exam Abdominal Exam: Normal Inspection, Normal Bowel Sounds Abdominal Tenderness: negative: RUQ, RLQ, LUQ, LLQ, Epigastrium, Suprapubic, Diffuse, Mild, Moderate, Severe, Other - Extremities Extremities Exam: Normal Inspection, Full ROM - Back Back Exam: Normal Inspection, Full ROM - Neurologic Neurological Exam: Alert, Oriented X3, CN II-XII Intact - Skin Skin Exam: Warm, Dry, Intact Course - Consultation Called: 19:40 (Dr Garg agreed to admit for chest pain r/o) ROR - Labs Reviewed Result Diagrams: 12/09/17 16:20 12/09/17 16:20 Laboratory: WBC 7.8 X10^3/uL (3.6-10.0) 12/09/17 16:20 RBC 4.48 X10^6/uL (3.5-5.4) 12/09/17 16:20 Hgb 14.2 g/dL (12.0-16.0) 12/09/17 16:20 Hct 41.0 % (36.0-47.0) 12/09/17 16:20 MCV 91.4 fL (80.0-100.0) 12/09/17 16:20 MCH 31.8 pg (27.0-34.0) 12/09/17 16:20 MCHC 34.7 g/dL (33.0-35.0) 12/09/17 16:20 RDW 13.6 % (11.6-16.5) 12/09/17 16:20 Plt Count 252 X10^3/uL (150.0-450.0) 12/09/17 16:20 MPV 7.6 fL (7.4-11.0) 12/09/17 16:20 Neut % (Auto) 58.2 % (42.0-75.0) 12/09/17 16:20 Lymph % (Auto) 30.5 % (21.0-51.0) 12/09/17 16:20 [place] % (Auto) 8.3 % (0.0-13.0) 12/09/17 16:20 Eos % (Auto) 2.0 % (0.9-2.9) 12/09/17 16:20 Baso % (Auto) 1.0 % (0.2-1.0) 12/09/17 16:20 Neut # (Auto) 4.5 x10^3/uL (2.2-4.8) 12/09/17 16:20 Lymph # (Auto) 2.4 X10^3/uL (1.3-2.9) 12/09/17 16:20 [place] # (Auto) 0.7 x10^3/uL (0.3-0.8) 12/09/17 16:20 Eos # (Auto) 0.2 x10^3/uL (0.0-0.2) 12/09/17 16:20 Baso # (Auto) 0.1 X10^3/uL (0.0-0.1) 12/09/17 16:20 Absolute Nucleated RBC 0.1 /100WBC 12/09/17 16:20 Sodium 143 mmol/L (136-145) 12/09/17 16:20 Corrected Sodium 144 mmol/L (136-145) 12/09/17 16:20 Potassium 3.7 mmol/L (3.5-5.1) 12/09/17 16:20 Chloride 105 mmol/L (98-107) 12/09/17 16:20 Carbon Dioxide 28.7 mmol/L (21-32) 12/09/17 16:20 BUN 10 mg/dL (7-18) 12/09/17 16:20 Creatinine 0.84 mg/dL (0.55-1.02) 12/09/17 16:20 Est GFR (MDRD) Af Amer > 60 (>60) 12/09/17 16:20 Est GFR (MDRD) Non-Af > 60 (>60) 12/09/17 16:20 Glucose 148 mg/dL (65-99) H 12/09/17 16:20 Calcium 8.3 mg/dL (8.5-10.1) L 12/09/17 16:20 Corrected Calcium TNP 12/09/17 16:20 Total Bilirubin 0.30 mg/dL (0.2-1.0) 12/09/17 16:20 AST 11 Units/L (15-37) L 12/09/17 16:20 ALT 14 Units/L (12-78) 12/09/17 16:20 Alkaline Phosphatase 131 Units/L (46-116) H 12/09/17 16:20 Creatine Kinase 99 Units/L (26-192) 12/09/17 16:20 CK-MB (CK-2) < 1.0 ng/mL (0-4.0) 12/09/17 16:20 CK/CKMB % Calc 1.0 % (<4) 12/09/17 16:20 Troponin I < 0.02 ng/mL (0-1.5) 12/09/17 16:20 Total Protein 6.9 g/dL (6.4-8.2) 12/09/17 16:20 Albumin 3.5 g/dL (3.4-5.0) 12/09/17 16:20 Globulin 3.4 g/dL (2.5-4.5) 12/09/17 16:20 Albumin/Globulin Ratio 1.0 Ratio (1.1-2.1) L 12/09/17 16:20 - XRAY XRAY Interpreted by: Radiologist (Chest: No acute cardiopulmonary disease) - EKG Rhythm: NSR Block: None Hypertrophy: None ST: Normal - Diagnosis Discharge Problem: Chest pain Qualifiers: Chest pain type: unspecified Qualified Code(s): R07.9 - Chest pain, unspecified - Discharge Plan Condition: Stable - Follow ups/Referrals Follow ups/Referrals: JEREMY GARG [Primary Care Provider] - 3 days - Instructions
[2017-12-09] MEDS: MORPHINE SULFATE INJ 2 MG INJ IVP PRN (20:47)
[2017-12-09 21:43] LABS: BILIRUBIN,URINE NEGATIVE (NEGATIVE); BLOOD/HEMOGLOBIN,URINE NEGATIVE (NEGATIVE); GLUCOSE, URINE NEGATIVE (NEGATIVE); KETONES,URINE NEGATIVE (NEGATIVE); LEUKOCYTE ESTERASE ,URINE 1+ (NEGATIVE); NITRITES,URINE NEGATIVE (NEGATIVE); PROTEIN,URINE NEGATIVE (NEGATIVE); UROBILINOGEN,URINE 3+ (NORMAL)
[2017-12-09 21:51] LABS: APPEARANCE,URINE CLEAR (CLEAR); BACTERIA,URINE TRACE /HPF (NEGATIVE); COLOR,URINE YELLOW (YELLOW); RBC,URINE 0-2 /HPF (NONE SEEN); SQUAMOUS EPITHELIAL CELL,UR FEW /HPF (NEGATIVE)
[2017-12-09] MEDS: ZOFRAN INJ 4 MG VIAL IVP PRN (23:09)
[2017-12-09 23:26] LABS: CREATINE KINASE 93 Units/L (26-192); TROPONIN I < 0.02 ng/mL (0-1.5)
[2017-12-09 23:29] LABS: CKMB % 1.1 % (<4); CREATINE KINASE MB < 1.0 ng/mL (0-4.0)
[2017-12-10] MEDS: MORPHINE SULFATE INJ 2 MG INJ IVP PRN ×4 (01:32→13:22)
[2017-12-10] MEDS: ZOFRAN INJ 4 MG VIAL IVP PRN (04:33)
[2017-12-10 08:17] LABS: CHOL/HDL RATIO 4.7 (0.0-5.0); CHOLESTEROL 150 mg/dL (0-200); CKMB % 1.3 % (<4); CREATINE KINASE 77 Units/L (26-192); CREATINE KINASE MB < 1.0 ng/mL (0-4.0); HDL CHOLESTEROL 32 mg/dL (40-60); MAGNESIUM 1.9 mg/dL (1.7-2.9); TRIGLYCERIDES 132 mg/dL (0-150); TROPONIN I < 0.02 ng/mL (0-1.5)
[2017-12-10] MEDS ORDERED: ASPIRIN PO SCH (09:00)
[2017-12-10] MEDS ORDERED: ZOFRAN SYRUP 4 MG UDC PO PRN (11:28)
[2017-12-10] MEDS ORDERED: ZOFRAN TAB 4 MG ONE (11:29)
--- NOTE | 2017-12-10 13:19 | RAD ---
HISTORY: Chest pain radiating down both arms and right side of neck. Study: Right shoulder: Three views Comparison: None Findings: Minimal acromioclavicular joint hypertrophy is noted. No acute bony or joint abnormalities are ident ified. IMPRESSION: 1. Minimal acromioclavicular joint hypertrophy. 2. No acute bony abnormalities are identified. Reported By:
--- NOTE | 2017-12-10 13:20 | RAD ---
HISTORY: Chest pain that radiates down the left arm and right arm and right-side of neck. Study: 6 view cervical spine Comparison: No priors Findings: There is mild cervical straightening which may indicate muscle spasm. No fracture or subluxation is s een. Disc spaces are well maintained The central canal appears patent without posterior element abnor mality. No prevertebral soft tissue swelling can be identified. The odontoid appears intact. The l ateral masses of C1 align with the body of C2. Swimmer's view reveals a normal C7-T1 relationship. Ob lique views reveal patent neural foramina bilaterally. IMPRESSION: Mild cervical straightening which may indicate muscle spasm. No fracture, subluxation or disc space narrowing is seen. Reported By:
[2017-12-10 16:34] VITALS: BP 128/59
--- NOTE | 2017-12-15 19:49 | DR.CARTERS ---
Short Stay Summary - Short Stay Summary for: Short Stay Summary for Date of:: 12/09/17 - Admission Date Date of Admission: 12/09/17 - Discharge Date Discharge Date: 12/10/17 - Admission Diagnoses (1) Chest pain Status: Acute (2) Diabetes Status: Acute - Hospital Course Hospital Course: patient presents to the ED with complaint of right chest pain with numbness of right upper extremity and right leg. Patient reports that the pain onset 3-4 hours prior to being seen. She reports that she has had a stroke x 2; 3-4 years ago and one year ago. She takes ASA, Zocar and Lisinopril. The patient was admitterd for further evaluation. Did have monitoring of cardiac enzymes and ekgs. cervical and lumbar imaging were obtained. patient was felt stable and was discharged home. - Discharge Medications Discharge Medications: Lisinopril [ZESTRIL *] 10 mg PO DAILY 12/09/17 [History] - Discharge Plan Disposition: 01 HOME, SELF-CARE Condition: Stable - Follow up/Referrals Follow up/Referrals: JEREMY LINDER [Primary Care Provider] - 12/18/17 1:30 pm - Instructions Instructions: Chronic Obstructive Pulmonary Disease Exacerbation, [id number] , Acute Bronchitis, Adult, [id number], Chest Pain Observation Forms: Patient Portal
== END 2017-12-10 17:10 | disposition home or self-care (01) ==
LOC: ER 16:13 → OBS 20:20
PROVIDERS: ADMIT Internal Medicine; ATTEND Internal Medicine
DX: R07.89 Other chest pain (principal); E11.9 Type 2 diabetes mellitus without complications; R20.2 Paresthesia of skin; Z86.73 Personal history of transient ischemic attack (TIA), and cerebral infarction without residual deficits; J44.9 Chronic obstructive pulmonary disease, unspecified; Z79.01 Long term (current) use of anticoagulants
CPT/HCPCS: 36415; 71045; 72050; 73030; 80053; 80061; 81001; 82550; 82553; 83735; 84484; 85025; 93005; 93010; 94760; 96365; 96367; 96374; 96375; 99284; 99285; A4216; A4222; S0181; G0378; J2270; J2405; Q0162

== ENCOUNTER 2018-07-14 14:46 | Inpatient (IN) ==
[2018-07-14] MEDS: DUONEB 0.5 MG/3 MG NEB SCH ×2 (17:05→20:17)
[2018-07-14 17:09] LABS: ABG HCO3 27.1 mmol/L (22-26)
[2018-07-14 17:10] LABS: ABG ALLEN TEST POS
[2018-07-14 17:40] VITALS: BMI 39.6
[2018-07-14 17:42] LABS: BASOPHILS % (AUTO) 0.5 % (0.2-1.0); EOSINOPHILS % (AUTO) 0.5 % (0.9-2.9); HEMATOCRIT 42.7 % (36.0-47.0); HEMOGLOBIN 14.4 g/dL (12.0-16.0); LYMPHOCYTES # (AUTO) 0.8 X10^3/uL (1.3-2.9); LYMPHOCYTES % (AUTO) 9.7 % (21.0-51.0); MEAN CORPUSCULAR HEMOGLOBIN 30.9 pg (27.0-34.0); MEAN CORPUSCULAR HGB CONC 33.8 g/dL (33.0-35.0); MEAN CORPUSCULAR VOLUME 91.5 fL (80.0-100.0); MEAN PLATELET VOLUME 8.4 fL (7.4-11.0); MONOCYTES # (AUTO) 0.2 x10^3/uL (0.3-0.8); MONOCYTES % (AUTO) 2.7 % (0.0-13.0); NEUTROPHILS # (AUTO) 7.5 x10^3/uL (2.2-4.8); NEUTROPHILS % (AUTO) 86.6 % (42.0-75.0); PLATELET COUNT 235 X10^3/uL (150.0-450.0); RED BLOOD COUNT 4.66 X10^6/uL (3.5-5.4); RED CELL DISTRIBUTION WIDTH 14.5 % (11.6-16.5); WHITE BLOOD COUNT 8.7 X10^3/uL (3.6-10.0)
[2018-07-14] MEDS ORDERED: SOLU-Medrol 40 MG VIAL ONE (17:44)
[2018-07-14] MEDS ORDERED: NS 250 ML IV 250 ML IV ONE (17:44)
[2018-07-14] MEDS ORDERED: LEVAQUIN PREMIX IV 500 MG 500 MG/100 ML BAG IV ONE (17:45)
--- NOTE | 2018-07-14 17:53 | RAD ---
Exam: Chest two views History: COPD. Hypertension. Comparison: Previous chest radiograph from 12/09/2017 Findings: Shallow inspiration accentuates overall heart size. Pulmonary vasculature is within normal limits. A focal parenchymal opacity projects over the right hemidiaphragm. This appears to represent an early infiltrate. Remainder the lungs are clear. No significant effusion on either side. Bony thorax is unremarkable. Impression: Early infiltrate is seen at the right base. Reported By:
[2018-07-14] MEDS: SOLU-Medrol 40 MG VIAL IVP SCH (18:06)
[2018-07-14] MEDS: LEVAQUIN PREMIX IV 500 MG 500 MG/100 ML BAG IV SCH ×2 (18:06→18:07)
[2018-07-14 18:07] LABS: BLOOD UREA NITROGEN 14 mg/dL (7-18); CALCIUM 8.7 mg/dL (8.5-10.1); CARBON DIOXIDE 23.3 mmol/L (21-32); CHLORIDE 103 mmol/L (98-107); COR NA(FOR HYPERGLY) 141 mmol/L (136-145); CREATININE 1.06 mg/dL (0.55-1.02); SODIUM 139 mmol/L (136-145); eGFR NON BLACK RACES 60 (>60)
[2018-07-14] MEDS ORDERED: SALINE 3% 15 ML NEB TX NEB ONE (18:35)
[2018-07-14] MEDS ORDERED: ROBITUSSIN DM PO PRN (19:11)
[2018-07-14] MEDS ORDERED: ULTRAM PO PRN (19:11)
[2018-07-14] MEDS: TUSSIONEX PENNKINETIC SUSP PO PRN (19:50)
[2018-07-14] MEDS: ZOFRAN INJ 4 MG VIAL IVP PRN (19:50)
[2018-07-14 20:06] LABS: BILIRUBIN,URINE NEGATIVE (NEGATIVE); BLOOD/HEMOGLOBIN,URINE 1+ (NEGATIVE); GLUCOSE, URINE 4+ (NEGATIVE); KETONES,URINE NEGATIVE (NEGATIVE); LEUKOCYTE ESTERASE ,URINE NEGATIVE (NEGATIVE); NITRITES,URINE NEGATIVE (NEGATIVE); PROTEIN,URINE NEGATIVE (NEGATIVE); UROBILINOGEN,URINE NORMAL (NORMAL)
[2018-07-14 20:10] LABS: APPEARANCE,URINE CLEAR (CLEAR); COLOR,URINE YELLOW (YELLOW)
[2018-07-14 20:12] LABS: BACTERIA,URINE NEGATIVE /HPF (NEGATIVE); RBC,URINE 0-2 /HPF (NONE SEEN); SQUAMOUS EPITHELIAL CELL,UR RARE /HPF (NEGATIVE)
[2018-07-14] MEDS: PULMICORT NEB TX 0.5 MG NEB SCH (20:21)
[2018-07-14] MEDS: BROVANA IN SCH (20:21)
[2018-07-14] MEDS ORDERED: DUONEB 0.5 MG/3 MG NEB SCH (21:00)
[2018-07-14] MEDS: NORCO 5/325 MG TAB PO PRN (21:46)
[2018-07-15] MEDS: MORPHINE SULFATE INJ 2 MG INJ ONE ×2 (00:55→00:58)
[2018-07-15] MEDS: MORPHINE SULFATE INJ 2 MG INJ IVP PRN ×4 (00:56→23:21)
[2018-07-15] MEDS: DUONEB 0.5 MG/3 MG NEB SCH ×6 (01:12→20:26)
[2018-07-15 05:21] LABS: BASOPHILS % (AUTO) 0.2 % (0.2-1.0); HEMATOCRIT 40.8 % (36.0-47.0); HEMOGLOBIN 13.8 g/dL (12.0-16.0); LYMPHOCYTES # (AUTO) 0.5 X10^3/uL (1.3-2.9); LYMPHOCYTES % (AUTO) 8.1 % (21.0-51.0); MEAN CORPUSCULAR HEMOGLOBIN 30.7 pg (27.0-34.0); MEAN CORPUSCULAR HGB CONC 33.7 g/dL (33.0-35.0); MEAN CORPUSCULAR VOLUME 91.1 fL (80.0-100.0); MEAN PLATELET VOLUME 7.6 fL (7.4-11.0); MONOCYTES # (AUTO) 0.1 x10^3/uL (0.3-0.8); MONOCYTES % (AUTO) 1.4 % (0.0-13.0); NEUTROPHILS # (AUTO) 6.1 x10^3/uL (2.2-4.8); NEUTROPHILS % (AUTO) 90.3 % (42.0-75.0); PLATELET COUNT 228 X10^3/uL (150.0-450.0); RED BLOOD COUNT 4.48 X10^6/uL (3.5-5.4); RED CELL DISTRIBUTION WIDTH 13.9 % (11.6-16.5); WHITE BLOOD COUNT 6.7 X10^3/uL (3.6-10.0)
[2018-07-15 05:24] LABS: ALANINE AMINOTRANSFERASE 18 Units/L (12-78); ALBUMIN 3.3 g/dL (3.4-5.0); ALKALINE PHOSPHATASE 120 Units/L (46-116); ASPARTATE AMINO TRANSFERASE 10 Units/L (15-37); BLOOD UREA NITROGEN 15 mg/dL (7-18); CALCIUM 8.8 mg/dL (8.5-10.1); CHLORIDE 100 mmol/L (98-107); COR CA(FOR HYPOALB) 9.4 mg/dL (8.5-10.1); COR NA(FOR HYPERGLY) 141 mmol/L (136-145); CREATININE 0.98 mg/dL (0.55-1.02); SODIUM 137 mmol/L (136-145); TOTAL PROTEIN 7.1 g/dL (6.4-8.2); eGFR NON BLACK RACES > 60 (>60)
[2018-07-15] MEDS: NORCO 5/325 MG TAB PO PRN (05:39)
[2018-07-15 05:58] LABS: BAND NEUTROPHILS % 1 % (0-10); PLATELET MORPHOLOGY COMMENT NORMAL (NORMAL)
[2018-07-15] MEDS: LEVAQUIN PREMIX IV 500 MG 500 MG/100 ML BAG IV SCH (09:01)
[2018-07-15] MEDS: ROBITUSSIN DM PO SCH ×4 (09:02→21:00)
[2018-07-15] MEDS: SOLU-Medrol 40 MG VIAL IVP SCH ×2 (09:03→16:40)
[2018-07-15] MEDS: ZOFRAN INJ 4 MG VIAL IVP PRN ×2 (09:07→23:21)
[2018-07-15] MEDS: TUSSIONEX PENNKINETIC SUSP PO PRN (09:18)
[2018-07-15] MEDS: PULMICORT NEB TX 0.5 MG NEB SCH ×2 (09:19→20:16)
[2018-07-15] MEDS: BROVANA IN SCH ×2 (09:19→20:16)
--- NOTE | 2018-07-15 11:30 | DR.H&P ---
H&P - History & Physical for Day of: H&P Date: 07/14/18 - Chief Complaint Chief Complaint: SOB, Cough, Congestion - History of Present Illness History of Present Illness: Patient is a 47 year old female that presents for evaluation of medical complaints. Patient reports that she has had severe wheezing. States that over the past month, she has had 4 injections and 2 rounds of PO antibiotics. Reports that she is doing albuterol nebulizer and inhaler around the clock. Does report a non-productive cough. States that she has had labored breathing. Reports that she chest feels like it is on fire. Does report that her ribs and lungs are very sore. Does report a low grade fever up to 100.1F. Does report post-nasal drip. - Past Medical History Past Medical History: Asthma, COPD, Diabetes, Hypertension - Past Surgical History Surgical History: Hysterectomy, Ortho Surgery - Family History Family Medical History: Diabetes Mellitus, Cancer, [place], Heart Failure, Hypertension - Social History Does patient currently use any type of tobacco product: No Have you used tobacco products in the last 12 months: No Type of Tobacco Use: None Does any household member use tobacco: No Alcohol Use: None Drug Use: None - Medications Home Medications: No Known Drug Allergies Allergy (Verified 12/09/17 16:07) CONTINUE taking the following medications albuterol sulfate 1 neb INHALATION TID 07/14/18 [History] ipratropium-albuterol 1 neb INHALATION TID PRN 07/14/18 [History] rivaroxaban [Xarelto] 20 mg PO DAILY 07/14/18 [History] - Review of Systems Constitutional: Fever, Chills, Weakness, Malaise Eyes: No Symptoms Reported ENT: No Symptoms Reported Respiratory: Cough, Shortness of Breath, SOB with Excertion, Wheezing Cardiovascular: No Symptoms Reported Gastrointestinal: No Symptoms Reported Genitourinary: No Symptoms Reported Musculoskeletal: No Symptoms Reported Skin: No Symptoms Reported Neurological: No Symptoms Reported - Physical Exam Vital Signs: Temperature 97.8 F Pulse Rate [Right Brachial] 118 Pulse Rate [Left Brachial] 107 Pulse Rate 112 Respiratory Rate 20 Blood Pressure [Left Arm] 126/90 Blood Pressure [Right Arm] 135/70 Blood Pressure 128/59 O2 Sat by Pulse Oximetry 96 Oriented: Normal Eyes: Normal Ear: Normal Nose: Discharge Throat: Normal Respiratory: Diminished Throughout, Wheezes Throughout, RUL Insp. Wheeze, RML Insp. Wheeze, RLL Insp. Wheeze, LUISITO Insp.Wheeze, LML Insp.Wheeze, RUL Exp. Wheeze, RML Exp. Wheeze, RLL Exp. Wheeze, LUISITO Exp. Wheeze, LML Exp. Wheeze Cardiovascular: Normal : Normal Auscultation: Bowel Sounds: Normal Palpation: Normal Tenderness: Normal Skin: Normal Musculoskeletal: Normal Psychiatric: Normal Mood Description: Calm Affect: Normal Speech Pattern: Clear - Assessment/Plan (1) Pneumonia Status: Acute Plan: CXR, LABS, IV ANTIBIOTICS, NEBS, OXYGEN (2) Acute exacerbation of COPD with asthma Status: Acute Plan: CXR, LABS, IV ANTIBIOTICS, NEBS, OXYGEN (3) Acute bronchitis Status: Acute Plan: CXR, LABS, IV ANTIBIOTICS, NEBS, OXYGEN - Allergies Allergies/Adverse Reactions: Allergies Allergy/AdvReac Type Severity Reaction Status Date / Time No Known Drug Allergies Allergy Verified 12/09/17 16:07
[2018-07-15] MEDS ORDERED: TORADOL 15 MG VIAL IVP PRN (13:47)
--- NOTE | 2018-07-15 13:47 | PCM.PROG ---
Progress Note - Progress Note for Day of Date of Exam: 07/15/18 - Subjective Subjective: 47 WF DIRECT ADMIT ON 07/14 WITH AB WITH COPD, PT CURRENTLY ONPNEUMONIA PROTOCOL, CXR ON ADMISSION WITH INFILTRATE TO RLL. PT HAS NOT PRODUCED SPUTUM SPECIMEN. PT CO UPPER ABDOMINAL TENERNESS, "SORENESS" FROM COUGHING. PLAN TO CONTINUE IV ATBX, REPEAT AM CXR. - Past Medical Family Social History Past Med/Fam/Surg Hx: No changes since H&P Allergies: Allergies No Known Drug Allergies Allergy (Verified 12/09/17 16:07) - Review of Systems ROS: No change since H&P - Vital Signs and I&O's Vital Signs: Temperature 97.8 F Pulse Rate [Right Brachial] 113 Pulse Rate [Left Brachial] 107 Pulse Rate 113 Respiratory Rate 22 Blood Pressure [Left Arm] 126/90 Blood Pressure [Right Arm] 129/64 Blood Pressure 128/59 O2 Sat by Pulse Oximetry 98 Intake and Output: Intake & Output 07/13/18 07/14/18 07/15/18 07/16/18 11:59 11:59 11:59 11:59 Intake Total 970 / 970 Balance 970 / 970 - Physical Exam Oriented: Normal Eyes: Normal Ear: Normal Nose: Discharge Throat: Normal Respiratory: Diminished Cardiovascular: Normal : Normal Auscultation: Bowel Sounds: Normal Tenderness: Normal Skin: Normal Musculoskeletal: Normal Psychiatric: Normal Mood Description: Calm Affect: Normal Speech Pattern: Clear - Laboratory and Diagnostics Result Diagrams: 07/15/18 04:16 07/15/18 04:16 Labs: 07/14/18 19:56 Urine,Clean Catch Urine Culture - Preliminary Laboratory WBC 6.7 X10^3/uL (3.6-10.0) 07/15/18 04:16 RBC 4.48 X10^6/uL (3.5-5.4) 07/15/18 04:16 Hgb 13.8 g/dL (12.0-16.0) 07/15/18 04:16 Hct 40.8 % (36.0-47.0) 07/15/18 04:16 MCV 91.1 fL (80.0-100.0) 07/15/18 04:16 MCH 30.7 pg (27.0-34.0) 07/15/18 04:16 MCHC 33.7 g/dL (33.0-35.0) 07/15/18 04:16 RDW 13.9 % (11.6-16.5) 07/15/18 04:16 Plt Count 228 X10^3/uL (150.0-450.0) 07/15/18 04:16 Plt Count Comment Adequate (ADEQUATE) 07/15/18 04:16 MPV 7.6 fL (7.4-11.0) 07/15/18 04:16 Neut % (Auto) 90.3 % (42.0-75.0) H 07/15/18 04:16 Lymph % (Auto) 8.1 % (21.0-51.0) L 07/15/18 04:16 Cannon % (Auto) 1.4 % (0.0-13.0) 07/15/18 04:16 Eos % (Auto) 0.0 % (0.9-2.9) L 07/15/18 04:16 Baso % (Auto) 0.2 % (0.2-1.0) 07/15/18 04:16 Neut # (Auto) 6.1 x10^3/uL (2.2-4.8) H 07/15/18 04:16 Lymph # (Auto) 0.5 X10^3/uL (1.3-2.9) L 07/15/18 04:16 Cannon # (Auto) 0.1 x10^3/uL (0.3-0.8) L 07/15/18 04:16 Eos # (Auto) 0.0 x10^3/uL (0.0-0.2) 07/15/18 04:16 Baso # (Auto) 0.0 X10^3/uL (0.0-0.1) 07/15/18 04:16 Absolute Nucleated RBC 0.1 /100WBC 07/15/18 04:16 Total Counted 100 07/15/18 04:16 Neutrophils % (Manual) 90 % (39-76) H 07/15/18 04:16 Band Neutrophils % 1 % (0-10) 07/15/18 04:16 Lymphocytes % (Manual) 8 % (13-43) L 07/15/18 04:16 Monocytes % (Manual) 1 % (4-9) L 07/15/18 04:16 Plt Morphology Comment Normal (NORMAL) 07/15/18 04:16 RBC Morphology Normal (NORMAL) 07/15/18 04:16 Sample Site Lr 07/14/18 17:04 ABG pH 7.450 (7.35-7.45) 07/14/18 17:04 ABG pCO2 39.0 mmHg (35.0-45.0) 07/14/18 17:04 ABG pO2 68.0 mmHg (80.0-100.0) L 07/14/18 17:04 ABG HCO3 27.1 mmol/L (22-26) H 07/14/18 17:04 ABG O2 Saturation 94.0 % (90-100) 07/14/18 17:04 ABG Base Excess 3.0 mmol/L (-2.0-2.0) H 07/14/18 17:04 Garry Test Pos 07/14/18 17:04 A-a Gradient 33.0 mmHg 07/14/18 17:04 FiO2 21.0 07/14/18 17:04 Blood Gas Comments Pt marleni well. cdn 07/14/18 17:04 Sodium 137 mmol/L (136-145) 07/15/18 04:16 Corrected Sodium 141 mmol/L (136-145) 07/15/18 04:16 Potassium 4.1 mmol/L (3.5-5.1) 07/15/18 04:16 Chloride 100 mmol/L (98-107) 07/15/18 04:16 Carbon Dioxide 21.0 mmol/L (21-32) 07/15/18 04:16 BUN 15 mg/dL (7-18) 07/15/18 04:16 Creatinine 0.98 mg/dL (0.55-1.02) 07/15/18 04:16 Est GFR (MDRD) Af Amer > 60 (>60) 07/15/18 04:16 Est GFR (MDRD) Non-Af > 60 (>60) 07/15/18 04:16 Glucose 264 mg/dL (65-99) H 07/15/18 04:16 Calcium 8.8 mg/dL (8.5-10.1) 07/15/18 04:16 Corrected Calcium 9.4 mg/dL (8.5-10.1) 07/15/18 04:16 Total Bilirubin 0.20 mg/dL (0.2-1.0) 07/15/18 04:16 AST 10 Units/L (15-37) L 07/15/18 04:16 ALT 18 Units/L (12-78) 07/15/18 04:16 Alkaline Phosphatase 120 Units/L (46-116) H 07/15/18 04:16 Total Protein 7.1 g/dL (6.4-8.2) 07/15/18 04:16 Albumin 3.3 g/dL (3.4-5.0) L 07/15/18 04:16 Globulin 3.8 g/dL (2.5-4.5) 07/15/18 04:16 Albumin/Globulin Ratio 0.9 Ratio (1.1-2.1) L 07/15/18 04:16 Specimen Type Clean catch urine 07/14/18 19:56 Urine Color Yellow (YELLOW) 07/14/18 19:56 Urine Appearance Clear (CLEAR) 07/14/18 19:56 Urine pH 6.0 (5.0 - 8.0) 07/14/18 19:56 Ur Specific [place] 1.015 (1.000-1.030) 07/14/18 19:56 Urine Protein Negative (NEGATIVE) 07/14/18 19:56 Urine Glucose (UA) 4+ (NEGATIVE) 07/14/18 19:56 Urine Ketones Negative (NEGATIVE) 07/14/18 19:56 Urine Occult Blood 1+ (NEGATIVE) 07/14/18 19:56 Urine Nitrite Negative (NEGATIVE) 07/14/18 19:56 Urine Bilirubin Negative (NEGATIVE) 07/14/18 19:56 Urine Urobilinogen Normal (NORMAL) 07/14/18 19:56 Ur Leukocyte Esterase Negative (NEGATIVE) 07/14/18 19:56 Urine RBC 0-2 /HPF (NONE SEEN) 07/14/18 19:56 Urine WBC 0-2 /HPF (NONE SEEN) 07/14/18 19:56 Ur Squamous Epith Cells Rare /HPF (NEGATIVE) 07/14/18 19:56 Urine Bacteria Negative /HPF (NEGATIVE) 07/14/18 19:56 Ur Culture Indicated? No/not indicated 07/14/18 19:56 - Plan (1) Pneumonia Status: Acute Plan: CXR, LABS, IV ANTIBIOTICS, NEBS, OXYGEN (2) Acute exacerbation of COPD with asthma Status: Acute Plan: CXR, LABS, IV ANTIBIOTICS, NEBS, OXYGEN (3) Diabetes Status: Acute Qualifiers: Diabetes mellitus type: type 2
[2018-07-15] MEDS: HumuLIN R SC PRN ×2 (16:41→21:12)
[2018-07-16] MEDS: ROBITUSSIN DM PO SCH ×6 (00:52→20:59)
[2018-07-16] MEDS: SOLU-Medrol 40 MG VIAL IVP SCH ×3 (00:53→17:15)
[2018-07-16] MEDS: DUONEB 0.5 MG/3 MG NEB SCH ×6 (01:29→20:37)
[2018-07-16] MEDS ORDERED: AMBIEN ONE (01:43)
[2018-07-16] MEDS: AMBIEN PO PRN ×2 (01:45→21:00)
[2018-07-16 05:26] LABS: BASOPHILS % (AUTO) 0.1 % (0.2-1.0); HEMATOCRIT 39.7 % (36.0-47.0); LYMPHOCYTES # (AUTO) 0.8 X10^3/uL (1.3-2.9); LYMPHOCYTES % (AUTO) 4.6 % (21.0-51.0); MEAN CORPUSCULAR HEMOGLOBIN 30.6 pg (27.0-34.0); MEAN CORPUSCULAR HGB CONC 32.7 g/dL (33.0-35.0); MEAN CORPUSCULAR VOLUME 93.6 fL (80.0-100.0); MEAN PLATELET VOLUME 7.7 fL (7.4-11.0); MONOCYTES # (AUTO) 0.6 x10^3/uL (0.3-0.8); MONOCYTES % (AUTO) 3.3 % (0.0-13.0); NEUTROPHILS # (AUTO) 15.4 x10^3/uL (2.2-4.8); PLATELET COUNT 235 X10^3/uL (150.0-450.0); RED BLOOD COUNT 4.24 X10^6/uL (3.5-5.4); RED CELL DISTRIBUTION WIDTH 14.1 % (11.6-16.5)
[2018-07-16] MEDS: HumuLIN R SC PRN ×3 (05:39→21:06)
[2018-07-16 05:41] LABS: ALANINE AMINOTRANSFERASE 17 Units/L (12-78); ALKALINE PHOSPHATASE 106 Units/L (46-116); ASPARTATE AMINO TRANSFERASE 9 Units/L (15-37); BLOOD UREA NITROGEN 20 mg/dL (7-18); CALCIUM 8.7 mg/dL (8.5-10.1); CARBON DIOXIDE 24.9 mmol/L (21-32); CHLORIDE 102 mmol/L (98-107); COR CA(FOR HYPOALB) 9.5 mg/dL (8.5-10.1); COR NA(FOR HYPERGLY) 141 mmol/L (136-145); CREATININE 0.89 mg/dL (0.55-1.02); SODIUM 136 mmol/L (136-145); TOTAL PROTEIN 6.4 g/dL (6.4-8.2); eGFR NON BLACK RACES > 60 (>60)
[2018-07-16 06:12] LABS: WHITE BLOOD COUNT 16.7 X10^3/uL (3.6-10.0)
[2018-07-16 06:13] LABS: BAND NEUTROPHILS % 3 % (0-10); PLATELET MORPHOLOGY COMMENT NORMAL (NORMAL)
--- NOTE | 2018-07-16 07:06 | RAD ---
HISTORY: COPD Study: Chest AP portable Comparison: 07/14/2018 Findings: The heart is mildly enlarged. No congestive heart failure is noted. The lungs are well inflated and now clear. No pleural effusions are identified. The bony thorax is unremarkable. IMPRESSION: Lungs clear Mild cardiomegaly without congestive heart failure Reported By:
[2018-07-16] MEDS: LEVAQUIN PREMIX IV 500 MG 500 MG/100 ML BAG IV SCH (08:14)
[2018-07-16] MEDS: MORPHINE SULFATE INJ 2 MG INJ IVP PRN ×4 (08:15→21:00)
[2018-07-16] MEDS: BROVANA IN SCH ×2 (09:16→20:37)
[2018-07-16] MEDS: PULMICORT NEB TX 0.5 MG NEB SCH ×2 (09:16→20:37)
[2018-07-16] MEDS: ZOFRAN INJ 4 MG VIAL IVP PRN (12:07)
[2018-07-16 13:10] LABS: CKMB % 1.7 % (<4); CREATINE KINASE 105 Units/L (26-192); CREATINE KINASE MB 1.8 ng/mL (0-4.0); TROPONIN I < 0.02 ng/mL (0-1.5)
[2018-07-16] MEDS: NORCO 5/325 MG TAB PO PRN (21:14)
[2018-07-17] MEDS: COLACE CAP 100 MG PO PRN ×2 (00:04→20:46)
[2018-07-17] MEDS: AMBIEN PO PRN ×2 (00:05→20:47)
[2018-07-17] MEDS: MILK OF MAGNESIA PO PRN ×2 (00:05→20:46)
[2018-07-17] MEDS: SOLU-Medrol 40 MG VIAL IVP SCH ×3 (00:05→16:31)
[2018-07-17] MEDS: MORPHINE SULFATE INJ 2 MG INJ IVP PRN ×5 (00:09→20:46)
[2018-07-17] MEDS: ROBITUSSIN DM PO SCH ×6 (00:21→20:46)
[2018-07-17] MEDS: DUONEB 0.5 MG/3 MG NEB SCH ×6 (00:24→20:26)
[2018-07-17 00:25] LABS: BILIRUBIN,URINE NEGATIVE (NEGATIVE); BLOOD/HEMOGLOBIN,URINE NEGATIVE (NEGATIVE); GLUCOSE, URINE 4+ (NEGATIVE); KETONES,URINE NEGATIVE (NEGATIVE); LEUKOCYTE ESTERASE ,URINE NEGATIVE (NEGATIVE); NITRITES,URINE NEGATIVE (NEGATIVE); PROTEIN,URINE NEGATIVE (NEGATIVE); UROBILINOGEN,URINE NORMAL (NORMAL)
[2018-07-17 00:28] LABS: APPEARANCE,URINE CLEAR (CLEAR); BACTERIA,URINE NEGATIVE /HPF (NEGATIVE); COLOR,URINE YELLOW (YELLOW); RBC,URINE NONE SEEN /HPF (NONE SEEN); SQUAMOUS EPITHELIAL CELL,UR RARE /HPF (NEGATIVE)
[2018-07-17] MEDS: ZOFRAN INJ 4 MG VIAL IVP PRN ×2 (00:32→14:29)
[2018-07-17 05:21] LABS: BASOPHILS % (AUTO) 0.1 % (0.2-1.0); HEMATOCRIT 39.4 % (36.0-47.0); HEMOGLOBIN 13.1 g/dL (12.0-16.0); MEAN CORPUSCULAR HEMOGLOBIN 30.7 pg (27.0-34.0); MEAN CORPUSCULAR HGB CONC 33.2 g/dL (33.0-35.0); MEAN CORPUSCULAR VOLUME 92.5 fL (80.0-100.0); MEAN PLATELET VOLUME 7.5 fL (7.4-11.0); MONOCYTES # (AUTO) 0.7 x10^3/uL (0.3-0.8); MONOCYTES % (AUTO) 4.2 % (0.0-13.0); NEUTROPHILS # (AUTO) 15.2 x10^3/uL (2.2-4.8); NEUTROPHILS % (AUTO) 89.7 % (42.0-75.0); PLATELET COUNT 244 X10^3/uL (150.0-450.0); RED BLOOD COUNT 4.26 X10^6/uL (3.5-5.4); RED CELL DISTRIBUTION WIDTH 14.3 % (11.6-16.5); WHITE BLOOD COUNT 16.9 X10^3/uL (3.6-10.0)
[2018-07-17 05:37] LABS: ALANINE AMINOTRANSFERASE 17 Units/L (12-78); ALKALINE PHOSPHATASE 99 Units/L (46-116); ASPARTATE AMINO TRANSFERASE 9 Units/L (15-37); BLOOD UREA NITROGEN 19 mg/dL (7-18); CALCIUM 9.1 mg/dL (8.5-10.1); CHLORIDE 102 mmol/L (98-107); COR CA(FOR HYPOALB) 9.9 mg/dL (8.5-10.1); COR NA(FOR HYPERGLY) 142 mmol/L (136-145); CREATININE 0.79 mg/dL (0.55-1.02); SODIUM 138 mmol/L (136-145); TOTAL PROTEIN 6.3 g/dL (6.4-8.2); eGFR NON BLACK RACES > 60 (>60)
[2018-07-17 05:55] LABS: ABG BASE EXCESS 3.5 mmol/L (-2.0-2.0); ABG HCO3 28.5 mmol/L (22-26)
[2018-07-17] MEDS: HumuLIN R SC PRN ×3 (06:27→20:56)
[2018-07-17] MEDS: PULMICORT NEB TX 0.5 MG NEB SCH ×2 (08:20→20:27)
[2018-07-17] MEDS: BROVANA IN SCH ×2 (08:20→20:26)
[2018-07-17] MEDS: LEVAQUIN PREMIX IV 500 MG 500 MG/100 ML BAG IV SCH (09:14)
[2018-07-17] MEDS: NORCO 5/325 MG TAB PO PRN (11:54)
[2018-07-17] MEDS: XARELTO PO SCH (11:57)
[2018-07-17] MEDS: MAALOX or MYLANTA PO PRN (15:08)
[2018-07-17] MEDS: CARAFATE ORAL SUSP PO SCH ×2 (16:22→20:46)
[2018-07-18] MEDS: SOLU-Medrol 40 MG VIAL IVP SCH ×2 (00:07→08:06)
[2018-07-18] MEDS: ROBITUSSIN DM PO SCH ×4 (00:07→12:24)
[2018-07-18] MEDS: NORCO 5/325 MG TAB PO PRN (00:16)
[2018-07-18] MEDS: DUONEB 0.5 MG/3 MG NEB SCH ×3 (00:37→08:01)
[2018-07-18] MEDS: ZOFRAN INJ 4 MG VIAL IVP PRN (03:12)
[2018-07-18] MEDS: MORPHINE SULFATE INJ 2 MG INJ IVP PRN ×3 (03:12→12:23)
[2018-07-18 05:18] LABS: BASOPHILS % (AUTO) 0.1 % (0.2-1.0); EOSINOPHILS % (AUTO) 0.1 % (0.9-2.9); HEMATOCRIT 39.3 % (36.0-47.0); HEMOGLOBIN 13.1 g/dL (12.0-16.0); LYMPHOCYTES # (AUTO) 0.8 X10^3/uL (1.3-2.9); LYMPHOCYTES % (AUTO) 6.5 % (21.0-51.0); MEAN CORPUSCULAR HEMOGLOBIN 30.6 pg (27.0-34.0); MEAN CORPUSCULAR HGB CONC 33.2 g/dL (33.0-35.0); MEAN CORPUSCULAR VOLUME 92.1 fL (80.0-100.0); MEAN PLATELET VOLUME 7.5 fL (7.4-11.0); MONOCYTES # (AUTO) 0.5 x10^3/uL (0.3-0.8); MONOCYTES % (AUTO) 3.9 % (0.0-13.0); NEUTROPHILS # (AUTO) 10.5 x10^3/uL (2.2-4.8); NEUTROPHILS % (AUTO) 89.4 % (42.0-75.0); PLATELET COUNT 229 X10^3/uL (150.0-450.0); RED BLOOD COUNT 4.27 X10^6/uL (3.5-5.4); RED CELL DISTRIBUTION WIDTH 14.3 % (11.6-16.5); WHITE BLOOD COUNT 11.8 X10^3/uL (3.6-10.0)
[2018-07-18 05:26] LABS: ALANINE AMINOTRANSFERASE 18 Units/L (12-78); ALBUMIN 2.9 g/dL (3.4-5.0); ALKALINE PHOSPHATASE 101 Units/L (46-116); ASPARTATE AMINO TRANSFERASE 11 Units/L (15-37); BLOOD UREA NITROGEN 22 mg/dL (7-18); CALCIUM 8.6 mg/dL (8.5-10.1); CARBON DIOXIDE 28.6 mmol/L (21-32); CHLORIDE 102 mmol/L (98-107); COR CA(FOR HYPOALB) 9.5 mg/dL (8.5-10.1); COR NA(FOR HYPERGLY) 144 mmol/L (136-145); SODIUM 140 mmol/L (136-145); eGFR NON BLACK RACES > 60 (>60)
[2018-07-18] MEDS: HumuLIN R SC PRN ×2 (05:45→12:24)
[2018-07-18] MEDS: CARAFATE ORAL SUSP PO SCH ×2 (05:47→12:24)
[2018-07-18] MEDS: MAALOX or MYLANTA PO PRN (07:49)
[2018-07-18] MEDS: BROVANA IN SCH (08:00)
[2018-07-18] MEDS: PULMICORT NEB TX 0.5 MG NEB SCH (08:00)
[2018-07-18] MEDS: LEVAQUIN PREMIX IV 500 MG 500 MG/100 ML BAG IV SCH (08:05)
[2018-07-18] MEDS: XARELTO PO SCH (08:06)
[2018-07-18 10:34] VITALS: BP 144/82
--- NOTE | 2018-07-18 11:39 | RAD ---
Exam: Portable chest History: 47-year-old female with shortness of breath. Comparison: Previous chest radiograph from 07/16/2018 Findings: Heart size and pulmonary vasculature are normal. Lungs are clear with no infiltrate or significant effusion on either side. Bony thorax is unremarkable as well. Impression: No acute cardiopulmonary abnormality is seen on this exam Reported By:
== END 2018-07-18 14:38 | disposition home or self-care (01) | DRG 194 ==
LOC: MED/SURG 16:37
PROVIDERS: ADMIT Internal Medicine; ATTEND Internal Medicine
DX: J44.0 Chronic obstructive pulmonary disease with (acute) lower respiratory infection; J44.1 Chronic obstructive pulmonary disease with (acute) exacerbation; E11.65 Type 2 diabetes mellitus with hyperglycemia; J18.0 Bronchopneumonia, unspecified organism; J20.8 Acute bronchitis due to other specified organisms; I10 Essential (primary) hypertension; J45.998 Other asthma
CPT/HCPCS: 36415; 36600; 71010; 71020; 71045; 71046; 80048; 80053; 81001; 82550; 82553; 82803; 84484; 85025; 87040; 87086; 93005; 93010; 94640; 94669; 94760; A4216; A4222; J1815; J1885; J1956; J2270; J2405; J2920; J7050; J7620; J7626